=== PATIENT | female | born 1990 | race Caucasian/White ===

== ENCOUNTER 2022-03-19 14:13 | Inpatient (IN) ==
[2022-03-19] MEDS ORDERED: OXYTOCIN 30 UNITS/500 ML BAG IV PRN ×2 (14:45→14:48)
[2022-03-19] MEDS ORDERED: LIDOCAINE 1% LOCAL 20 ML VIAL INFIL PRN (14:45)
--- NOTE | 2022-03-19 14:58 | History & Physical Report ---
Date of Service March 19, 2022 Assessment & Plan (1) Encounter for induction of labor: Plan: Patient is a 31 yo at 37+3 WGA presenting to labor and delivery for induction d/t oligohydramnios and IUGR. Blood type: A+, GBS neg, rubella immune Plan to start oxytocin and insert almaraz bulb Rupture membranes later if necessary Proceed with labor and vaginal delivery Discussed with pt d/t IUGR and oligohydramnios, baby may not tolerate labor well. In the event that baby does not handle labor well, C section may be the safer option. Pt understands this. (2) IUGR (intrauterine growth restriction) affecting care of mother: (3) Oligohydramnios: Admission and Anticipated Discharge Date Admission Date: March 19, 2022 History of Present Illness Chief Complaint: induction of labor Primary Care Provider: NO PCP Patient is a 31 yo female currently at 37+3WGA with an ISIDRO 04/06/2022 as determined by US who is here for induction d/t IUGR and oligohydramnios. She had a visit this morning where her deepest fluid pocket was found to be <2 cm. Her was complicated by IUGR, oligohydramnios, obesity, and marginal cord insertion. Erratic, non timeable, non painful contractions; movement present; denies fluid loss; denies bloody show External uterine monitors used; category I tracing; normal FHT variability Had regular appointments with OB. Labs: (08/31/2021) Blood type: A+ Antibody screen: neg Hgb: 10.9 (today) Hct: 33.6% (today) WBC: 9.37 (today) Plt: 197 (today) Rubella: immune VDRL/RPR: neg Gonorrhea: neg Chlamydia: neg HIV: neg HbSAg: neg GBS: neg Other screens: cff-DNA: declined CF: declined SMA: declined Allergies Allergy/AdvReac Type Severity Reaction Status Date / Time No Known Allergies Allergy Verified 03/19/22 13:39 Home Medications Medication Instructions Recorded Confirmed Type albuterol sulfate 90 mcg/actuation 2 puff inhalation Q6H PRN 02/16/21 03/19/22 History aerosol inhaler Shortness Of Breath Or Wheezing cetirizine 10 mg tablet (Zyrtec) 10 mg PO DAILY PRN ALLERGIES 02/16/21 03/19/22 History prenat.vits,bernie,[id number]-uvos-zbtqv 1 tab PO DAILY 08/21/21 03/19/22 History ferrous sulfate 325 mg (65 mg 325 mg PO Q2D 02/03/22 03/19/22 History iron) capsule,extended release Patient History Medical History Allergy-induced asthma inhaler prn Anemia in Depression Missed ab Molar Surgical History H/O dilation and curettage History of right breast biopsy benign Hx of breast surgery right milk duct removal S/P wisdom tooth extraction Family History Father Stroke Hypertension Diabetes Mother Breast cancer Grandmother (Paternal) Diabetes Heart disease Grandfather (Maternal) Diabetes Other Cancer Denies family history of Ovarian cancer Lung cancer Social History Smoking Status: Former smoker Cigarettes Per Day: 2020; Second Hand Exposure: No; Hx Alcohol Use: No Hx Substance Use: Yes Preferred Language: Urdu Communication Ability: Effective Label Printer Required: No Beliefs That Will Affect Care: None marital status: marital status details: Billy (31) [phone] Current Living Situation: Spouse and Family Current Living Situation Comment: , 2 daughters current occupational status: employed current occupation: [employer] Feels Safe at Home: Yes Safety Concerns: Feels Safe At This Time Assistive Devices: None Review of Systems Denies fever, chills, sweats. Denies SOB, difficulty breathing, chest pain, palpitations, and chest pressure. Denies breast pain. Denies dysuria. Denies headache or changes in vision. Physical Exam Physical Exam: General: Alert and oriented. No acute distress CV: Regular rate and rhythm. No murmurs. Respiratory: CTA bilaterally. No rhonchi, wheezes, or crackles. No increased work of breathing. Abdomen: Gravid; Soft, nontender upon palpation Pelvic: Not performed. Pending COVID swab Lower extremities: No LE edema. No deep calf pain. Sabino's negative bilaterally. Supervising Physician Co-Signing Physician Notes Resident Physician Supervision Note: I interviewed and examined the patient. Discussed with Dr. Quintana and agree with findings and plan as documented in the note. Any exceptions or clarifications are listed here: 31 yo at 37 3/7 wga was seen in office for testing for fgr and found to have oligo. Given GA, was recommended for delivery per acog guidelines. PNI: FGR, oligohydramnios, marginal cord insertion. SVE 50/-2, fetus cat 1, toco irritability. Will begin induction with pit almaraz. 35cc almaraz placed after verbal consent obtained following discussion of RBA. Pt tolerated well. GBS neg Documented By: Luci Middleton MD Resident Activity Tracking Resident Involvement: Resident Care Provided Care Provided: OB Delivery
[2022-03-19 15:29] LABS: Hematocrit (blood only) 33.6 % (34.1-44.9); Hemoglobin 10.9 g/dl (12.0-16.0); Mean Corpuscular Hemoglobin 27.9 pg (25.0-34.0); Mean Corpuscular Hgb Conc 32.4 g/dL (32.0-36.0); Mean Corpuscular Volume 86.2 fL (80.0-100.0); Mean Platelet Volume 11.4 fL (9.4-12.3); Platelet Count 197 K/uL (130-400); RDW Coefficient of Variation 13.9 % (11.5-14.5); RDW Standard Deviation 43.5 fL (36.4-46.3); White Blood Count 9.37 K/ul (4.8-10.8)
[2022-03-19] MEDS: LACTATED RINGER'S 1,000 ML IV PRN ×2 (16:00→22:33)
[2022-03-19] MEDS ORDERED: NALOXONE HCL 1 MG in SODIUM CHLORIDE 0.9% 1000ML 1,000 ML IV PRN (22:18)
[2022-03-19] MEDS ORDERED: fentaNYL 2MCG/ML ROPIVACAINE 1.25MG/ML 100 ML BAG EPI PRN (22:18)
[2022-03-19] MEDS ORDERED: NALBUPHINE HCL INJ 10 MG/ML AMP IV PRN (22:18)
[2022-03-19] MEDS ORDERED: NALOXONE HCL 0.4 MG/1 ML VIAL/CARP IV PRN (22:18)
[2022-03-19] MEDS ORDERED: ONDANSETRON INJ 2 MG/ML 2 ML VIAL IV PRN (22:18)
[2022-03-19] MEDS ORDERED: ePHEDrine sulfate 50 MG/ML AMP IV PRN (22:18)
[2022-03-19] MEDS ORDERED: diphenhydrAMINE 50 MG/ML VIAL IV PRN (22:18)
[2022-03-19] MEDS ORDERED: fentaNYL citrate 100 MCG/2 ML VIAL ONE (22:20)
[2022-03-19] MEDS ORDERED: ePHEDrine sulfate 50 MG/ML AMP ONE (22:20)
--- NOTE | 2022-03-19 22:20 | Anesthesiology Consultation ---
Date of Service March 19, 2022 Assessment & Plan (1) Encounter for pre-operative examination: Chart Review Chart Review: Patient NOT seen in Pre Admission Testing and Acceptable Risk for Labor Epidural Consults Requested none History Height/Weight Height: 4 ft 11 in Weight: 82.117 kg Allergies Allergy/AdvReac Type Severity Reaction Status Date / Time No Known Allergies Allergy Verified 03/19/22 13:39 Medications Home Medications Medication Instructions Recorded Confirmed Last Taken albuterol sulfate 90 mcg/actuation 2 puff inhalation Q6H PRN 02/16/21 03/19/22 03/17/21 aerosol inhaler Shortness Of Breath Or Wheezing cetirizine 10 mg tablet (Zyrtec) 10 mg PO DAILY PRN ALLERGIES 02/16/21 03/19/22 2 Weeks Ago ~03/05/21 prenat.vits,bernie,ste-vube-nphwj 1 tab PO DAILY 08/21/21 03/19/22 03/19/22 0800 ferrous sulfate 325 mg (65 mg 325 mg PO Q2D 02/03/22 03/19/22 03/15/22 08:00 iron) capsule,extended release Active Medications Generic Name Dose Route Start Last Admin Trade Name Freq PRN Reason Stop Dose Admin Oxytocin 30 units in 500 mls @ 8 mls/hr 03/19/22 14:48 03/19/22 20:25 Pitocin IV 03/21/22 14:47 0.48 units/hr .Q24H PRN 8 mls/hr Labor Induction/Augmentation Titration Protocol 0.48 UNITS/HR Lactated Ringer's 1,000 mls @ 125 mls/hr 03/19/22 14:45 03/19/22 16:00 Lr IV 03/21/22 14:44 125 mls/hr .Q8H PRN Administration L&D Protocol Protocol Past Medical History Medical History Allergy-induced asthma inhaler prn Anemia in Depression Missed ab Molar Exercise / Class Metabolic Activity II 4-5 Yardwork/Stairs/Walk up hill Past Family History Family History Father Stroke Hypertension Diabetes Mother Breast cancer Grandmother (Paternal) Diabetes Heart disease Grandfather (Maternal) Diabetes Other Cancer Denies family history of Ovarian cancer Lung cancer Past Surgical History Surgical History H/O dilation and curettage History of right breast biopsy benign Hx of breast surgery right milk duct removal S/P wisdom tooth extraction Past Anesthesia History No Hx of Anesthesia Complications and No Family Hx of Anesthesia Complications History of PONV No Hx of PONV and No Hx of Motion Sickness Social History Smoking Status: Former smoker Smoking cigarettes per day: 2020 Hx Alcohol Use: No alcohol intake frequency: a few times a month Hx Substance Use: Yes substance use type: does not use Physical Exam Vital Signs Last Vital Signs Temp 36.9 C 03/19/22 19:15 Pulse 107 H 03/19/22 22:16 Resp 18 03/19/22 22:00 BP 126/82 03/19/22 22:16 Testing Laboratory Results 03/19/22 15:08
[2022-03-19] MEDS ORDERED: SODIUM CHLORIDE 0.9% INJ 10 ML VIAL ONE (22:21)
[2022-03-19] MEDS ORDERED: LIDOCAINE 2%/EPINEPHRINE 1:200,000 20 ML SDV ONE (22:21)
[2022-03-19] MEDS ORDERED: BUPIVACAINE 0.25% 30 ML VIAL ONE (22:21)
[2022-03-19] MEDS ORDERED: fentaNYL 2MCG/ML ROPIVACAINE 1.25MG/ML 100 ML BAG EPI ONE (22:21)
--- NOTE | 2022-03-19 23:49 | Labor Progress Brief Note ---
Date of Service March 19, 2022 Subjective Comfortable w/ epidural. There was ?rom when almaraz bulb came out earlier Assessment & Plan (1) Encounter for induction of labor: (2) Oligohydramnios: (3) IUGR (intrauterine growth restriction) affecting care of mother: Plan 31 yo at 37 3/7 wga admitted for IOL for FGR, oligo VSS Fetus cat 1 Labor - pit at 10, now s/p arom GBS neg epidural in place Admission and Anticipated Discharge Date Admission Date: March 19, 2022 Physical Exam Genitourinary: Manual OB Exam: + cervical dilation 4 cm, + cervical effacement 50%, + station -2 and + amniotic fluid (arom clear) OB Exam Monitor Tracing: + external FHT monitor used, + external uterine monitor used (q3) and + category I (145/mod/+accel/-decel) Results & Data ([facility]) Vital Signs (Past 12 Hours) Vital Signs Temp Pulse Resp BP Pulse Ox 03/19/22 19:15 98.4 F 18 03/19/22 23:44 100 03/19/22 23:44 95 H 03/19/22 23:39 98 03/19/22 23:39 113 H 03/19/22 23:38 103 H 03/19/22 23:38 101/60 03/19/22 23:34 99 03/19/22 23:34 95 H 03/19/22 23:29 99 03/19/22 23:29 108 H 03/19/22 23:24 95 03/19/22 23:24 109 H 03/19/22 23:23 97 H 03/19/22 23:23 104/61 03/19/22 23:19 99 03/19/22 23:19 88 03/19/22 22:42 18 03/19/22 22:42 18 03/19/22 22:44 18 03/19/22 22:44 18 03/19/22 22:46 18 03/19/22 22:46 18 03/19/22 22:48 18 03/19/22 22:48 18 03/19/22 22:50 18 03/19/22 22:50 18 03/19/22 23:00 18 03/19/22 23:00 18 03/19/22 22:55 18 03/19/22 22:55 18 03/19/22 23:14 97 03/19/22 23:14 95 H 03/19/22 23:09 99 03/19/22 23:09 106 H 03/19/22 23:06 112 H 03/19/22 23:06 102/57 L 03/19/22 23:04 100 03/19/22 23:04 129 H 03/19/22 23:02 139 H 03/19/22 23:02 98/55 L 03/19/22 22:59 99 03/19/22 22:59 131 H 03/19/22 22:56 104 H 03/19/22 22:56 105/59 L 03/19/22 22:54 99 03/19/22 22:54 128 H 03/19/22 22:54 103/56 L 03/19/22 22:52 157 H 03/19/22 22:52 98/58 L 03/19/22 22:50 123 H 03/19/22 22:50 96/55 L 03/19/22 22:49 100 03/19/22 22:49 118 H 03/19/22 22:48 101 H 03/19/22 22:48 98/54 L 03/19/22 22:46 112 H 03/19/22 22:46 94/52 L 03/19/22 22:44 114 H 03/19/22 22:44 88/51 L 03/19/22 22:42 122 H 03/19/22 22:42 98/53 L 03/19/22 22:38 126 H 03/19/22 22:38 115/63 03/19/22 22:36 113 H 03/19/22 22:36 124/75 03/19/22 22:34 116 H 03/19/22 22:34 120/75 03/19/22 22:16 107 H 03/19/22 22:16 126/82 03/19/22 22:00 18 03/19/22 22:00 18 03/19/22 20:23 114 H 03/19/22 20:23 123/63 03/19/22 19:15 8 L 03/19/22 19:15 98.4 F 8 L 03/19/22 19:10 109 H 03/19/22 19:10 122/71 03/19/22 16:26 98.2 F 20 03/19/22 14:59 122 H 126/89 Coding Level of Care Code None Diagnoses Encounter for induction of labor Z34.90 Oligohydramnios O41.00X0 IUGR (intrauterine growth restriction) affecting care of mother O36.5990
--- NOTE | 2022-03-20 02:05 | Delivery Summary ---
Vaginal Delivery Summary Date of Service March 20, 2022 Vaginal Delivery Summary [facility] PREOPERATIVE DIAGNOSIS: 1. Single intrauterine at 37 4/7 wga 2. Oligohydramnios 3. growth restriction 4. Marginal cord insertion POSTOPERATIVE DIAGNOSIS: 1. Single intrauterine at 37 4/7 wga 2. Oligohydramnios 3. growth restriction 4. Marginal cord insertion 5. Delivered PROCEDURE: 1. Normal spontaneous vaginal delivery. SURGEON: Luci Middleton MD ANESTHESIA: Epidural. ESTIMATED BLOOD LOSS: 200 mL FLUIDS: Continuous LR. URINE OUTPUT: None. COMPLICATIONS: None. CONDITION: Stable. INDICATIONS: 31 yo at 37 4/7 wga was seen one day ago for testing for growth restriction. She was found to be oligohydramnios and recommended for delivery given GA. Induction started with almaraz bulb and pitocin. Following almaraz bulb expulsion, pitocin was titrated up. There was ?SROM but ?forebag was palpated and AROM following obtaining epidural. She then progressed to complete and desired to push. FINDINGS: A viable female , weight pending with Apgars of 8 and 9 at 1 and 5 minutes respectively. SPECIMEN: Cord blood, placenta OPERATIVE REPORT: The patient progressed to 10 cm, 100% effaced and +2 station, pushed over intact perineum with anesthesia to deliver a viable female infant, weight and Apgars as above. Head of delivered in [place]ISE position. No nuchal cord was present. Body and shoulders were delivered without difficulty. was delivered to maternal abdomen and nursing staff. Delayed cord clamping was performed for 60 seconds. Cord was clamped and cut. Cord blood was obtained. Placenta delivered spontaneously intact with 3-vessel cord. IV oxytocin and fundal massage were given for excellent hemostasis. Vagina, cervix, perineum, and placenta were inspected. No lacerations were noted. Sponge and needle counts correct x2. No sponges were left behind. Mother and stable in immediate period. [facility] Vaginal Delivery Charge Vaginal Delivery Codes: 57872 global code for the antepartum, delivery, and post- Delivery Type Details: [facility]
[2022-03-20] MEDS ORDERED: ACETAMINOPHEN 325 MG TAB PO PRN (02:11)
[2022-03-20] MEDS ORDERED: BENZOCAINE 20% AER SPR 82.5 GM CAN EXT PRN (02:11)
[2022-03-20] MEDS ORDERED: HYDROCORTISONE ACETATE 25 MG SUPP PR PRN (02:11)
[2022-03-20] MEDS ORDERED: OXYTOCIN 30 UNITS/500 ML BAG IV PRN (02:11)
[2022-03-20] MEDS ORDERED: DIPHTHERIA/TETANUS/PERTUSSIS 0.5 ML SYR/VIAL IM ONE (02:11)
[2022-03-20] MEDS: IBUPROFEN 600 MG TAB PO PRN ×4 (04:22→23:46)
--- NOTE | 2022-03-20 05:14 | Anesthesia Procedure Note ---
Date of Service March 20, 2022 Anesthesia Post Epidural Note Vital Signs Vital Signs: Temp Pulse Resp BP Pulse Ox 36.7 C 127 H 18 100/62 88 L 03/20/22 02:00 03/20/22 03:23 03/20/22 04:00 03/20/22 03:23 03/20/22 01:51 Pain Intensity Lower Abdomen: Pain Intensity: 1 Notes Mental Status: alert / awake / arousable and participated in evaluation Nausea / Vomiting: adequately controlled Pain: adequately controlled Airway Patency, RR, SpO2: stable & adequate BP & HR: stable & adequate Hydration State: stable & adequate Neuraxial Anesthesia: was administered and sensory block is resolving Anesthetic Complications: no major complications apparent and Pt Satisfied with anesthetic care Epidural: Removed without complications and With tip intact
[2022-03-20] MEDS: PRENATAL VITAMIN 1 TAB PO SCH (08:11)
[2022-03-20] MEDS: FERROUS SULFATE 325 MG TAB PO SCH (08:11)
[2022-03-20] MEDS: DOCUSATE SODIUM 100 MG CAP PO SCH ×2 (08:11→20:12)
--- NOTE | 2022-03-21 06:30 | Obstetrical Progress Note ---
Date of Service <Arlin Baker DO Lilian - Last Filed: 03/21/22 07:07> March 21, 2022 Assessment & Plan <Arlin NewellDO sadi - Last Filed: 03/21/22 07:07> (1) care following vaginal delivery: Patient is PPD 1 s/p and doing well. - Eating well, voiding well, ambulating well - Vitals reviewed and within normal limits - Pain well controlled with analgesics - OOB, ambulation, diet progression as tolerated - Blood type: A+, GBS neg, rubella immune - Plan to discharge today - After discharge, 6 week follow up with Dr. Middleton <Radha Torres MD, FACOG - Last Filed: 03/21/22 07:53> (1) care following vaginal delivery: Subjective <Arlin NewellDO sadi - Last Filed: 03/21/22 07:07> Patient is a 31 yo female who is now PPD #1 following spontaneous vaginal delivery at 37+4 weeks. Reports feeling well this morning. She endorses abdominal cramping and 5/10 pain well managed on analgesics. Voiding without issue. Tolerating regular meals overnight and able to ambulate some. She has passed gas and had bowel movements. Persistent lochia with some improvement this morning. Patient feels her bleeding is "almost gone." Currently breast feeding. Review of Systems Denies fever, chills, sweats. Denies SOB, difficulty breathing, chest pain, palpitations, and chest pressure. Denies breast pain. Denies dysuria. Denies headache or changes in vision. Physical Exam <Arlin Baker DO Lilian - Last Filed: 03/21/22 07:07> General: Alert and oriented. No acute distress. CV: Regular rate and rhythm. No murmurs. Respiratory: CTA bilaterally. No rhonchi, wheezes, or crackles. No increased work of breathing. Abdomen: Positive bowel sounds. Soft, nontender, non distended. Uterus: Fundus firm and palpable 3 cm below the umbilicus. Lower extremities: No LE edema. No deep calf pain. Sabino's negative bilaterally. Results & Data ([facility]) <Arlin McduffieBarbara Quintana DO - Last Filed: 03/21/22 07:07> Vital Signs (Past 12 Hours) Vital Signs Temp Pulse Resp BP Pulse Ox O2 Del Method 03/20/22 23:25 36.6 C 75 18 113/76 03/20/22 20:10 36.7 C 98 H 18 114/75 97 Room Air <Radha Torres MD, FACOG - Last Filed: 03/21/22 07:53> Co-Signing Physician Notes Resident Physician Supervision Note: I was present with Dr. Quintana during the history and exam. I discussed the case with the resident and agree with the findings and plan as documented in the note. Any exceptions or clarifications are listed here: stable, ready for dc home, instructions reviewed. 6wk pp planned. breast/rhpos/ri. ff 2down nt, nt calves. Documented By: Radha Torres MD, FACOG Resident Activity Tracking <Arlin Quintana, DO - Last Filed: 03/21/22 07:07> Resident Involvement: Resident Care Provided Care Provided: OB Delivery
[2022-03-21] MEDS: PRENATAL VITAMIN 1 TAB PO SCH (08:01)
[2022-03-21] MEDS: DOCUSATE SODIUM 100 MG CAP PO SCH (08:01)
[2022-03-21] MEDS: FERROUS SULFATE 325 MG TAB PO SCH (08:01)
[2022-03-21] MEDS: IBUPROFEN 600 MG TAB PO PRN (13:08)
[2022-03-21] MEDS ORDERED: bisacodyL 5 MG TABEC PO SCH (20:00)
[2022-03-22] MEDS ORDERED: bisacodyL 10 MG SUPP PR PRN
== END 2022-03-21 13:55 | disposition home or self-care (01) | DRG 807 ==
LOC: 4S1 14:13 → 4E2 03-20 05:07

== ENCOUNTER 2023-07-17 07:37 | Inpatient (IN) ==
[2023-07-17] MEDS ORDERED: LACTATED RINGER'S 1,000 ML IV PRN (07:59)
[2023-07-17] MEDS ORDERED: LIDOCAINE 1% LOCAL 20 ML VIAL INFIL PRN (07:59)
[2023-07-17] MEDS ORDERED: OXYTOCIN 30 UNITS/NSS 30 UNITS/500 ML BAG IV PRN ×3 (07:59→14:08)
[2023-07-17 08:49] LABS: Hematocrit (blood only) 30.7 % (37.0-47.0); Hemoglobin 9.8 g/dl (12.0-16.0); Mean Corpuscular Hemoglobin 26.9 pg (25.0-34.0); Mean Corpuscular Hgb Conc 31.9 g/dL (32.0-36.0); Mean Corpuscular Volume 84.3 fL (80.0-100.0); Mean Platelet Volume 11.4 fL (9.4-12.4); Platelet Count 174 K/uL (130-400); RDW Standard Deviation 45.7 fL (36.4-46.3); Red Blood Count 3.64 M/uL (4.20-5.40); White Blood Count 9.87 K/ul (4.8-10.8)
--- NOTE | 2023-07-17 09:02 | History & Physical Report ---
Date of Service July 17, 2023 Assessment & Plan (1) 39 weeks gestation of : (2) Encounter for induction of labor: Plan admit, iv, labs. fhts categ 1. start pitocin. watch fluid ?mec, pt and partner aware. epidural if and when desires Admission and Anticipated Discharge Date Admission Date: July 17, 2023 History of Present Illness Chief Complaint: elective induction of labor Primary Care Provider: NO PCP 33yo at 39wks ega presents to L&D for planned elective induction of labor. Patient denies rom, ctx. Had some brown blood dc after membranes stripped yesterday. PNC c/b 1. obesity PNL rh pos, ri, gbs neg OBH: x 3 GYNH: nl paps, no stds Allergies Allergy/AdvReac Type Severity Reaction Status Date / Time No Known Allergies Allergy Verified 07/17/23 08:02 Home Medications Medication Instructions Recorded Confirmed Type albuterol sulfate 90 mcg/actuation 1 - 2 puff inhalation Q6H PRN 12/15/22 07/17/23 History aerosol inhaler Shortness Of Breath Or Wheezing ferrous sulfate [Iron (ferrous 325 mg PO Q OTHER DAY 06/12/23 07/17/23 History sulfate)] [id number] 1 tab PO DAILY 07/16/23 07/17/23 History [] Patient History Medical History (Updated 07/17/23 @ 09:01 by Radha Torres MD, FACOG) Molar Depression Anemia in Allergy-induced asthma inhaler prn Missed ab Encounter for anatomic survey Surgical History H/O dilation and curettage Hx of breast surgery right milk duct removal History of right breast biopsy benign S/P wisdom tooth extraction Family History Father Stroke Hypertension Diabetes Mother Breast cancer Grandmother (Paternal) Diabetes Heart disease Grandfather (Maternal) Diabetes Other Cancer Denies family history of Ovarian cancer Lung cancer Social History Smoking Status: Never smoker Second Hand Exposure: No; Do You Dip or Chew Tobacco: No; Hx Alcohol Use: No Hx Substance Use: No Preferred Language: Mexican Communication Ability: Effective Draughtsman Required: No Beliefs That Will Affect Care: None marital status: marital status details: Billy (31) [phone] Current Living Situation: Spouse Current Living Situation Comment: , 2 daughters current occupational status: employed current occupation: [employer] Feels Safe at Home: Yes Safety Concerns: Feels Safe At This Time Assistive Devices: None Review of Systems as per Subjective / HPI Physical Exam Constitutional: WD/WN, vitals as above Respiratory: normal respiratory effort, lungs clear to auscultation Cardiovascular: Rate/Rhythm: regular rate and regular rhythm Gastrointestinal (Abdomen): soft gravid nt efw 7-8# Musculoskeletal: no edema nontender calves Neurologic: grossly normal Psychiatric: A+Ox3, euthymic affect Genitourinary: Manual OB Exam: + cervical dilation (3.5), + cervical effacement (75%), + station -2 and + amniotic fluid (arom) clear and meconium (? thin) OB Exam Monitor Tracing: + external FHT monitor used, + external uterine monitor used (irreg), + category I and + normal FHT variability Results & Data Vital Signs (Past 12 Hours) Vital Signs Temp Pulse Resp BP 07/17/23 08:05 97.9 F 121 H 16 120/74 07/17/23 07:43 121 H 120/74 Coding Level of Care Code None Diagnoses 39 weeks gestation of Z3A.39 Encounter for induction of labor Z34.90
[2023-07-17] MEDS ORDERED: ePHEDrine sulfate 50 MG/ML AMP ONE (11:56)
[2023-07-17] MEDS ORDERED: fentaNYL citrate PF 100 MCG/2 ML VIAL ONE (11:56)
[2023-07-17] MEDS ORDERED: BUPIVACAINE 0.25% PF 30 ML VIAL ONE (11:57)
[2023-07-17] MEDS ORDERED: SODIUM CHLORIDE 0.9% PF INJ 10 ML VIAL ONE (11:57)
[2023-07-17] MEDS ORDERED: LIDOCAINE 2%/EPINEPHRINE 1:200,000 20 ML PF ONE (11:57)
--- NOTE | 2023-07-17 11:57 | Labor Progress Brief Note ---
Date of Service July 17, 2023 Subjective pt with pressure Assessment & Plan (1) 39 weeks gestation of : (2) Encounter for induction of labor: Plan good cx change, c/w pit. fhts categ 1. desires epidural. Admission and Anticipated Discharge Date Admission Date: July 17, 2023 Physical Exam Constitutional: WD/WN, vitals as above Genitourinary: Manual OB Exam: + cervical dilation 5 cm, + cervical effacement 80% and + station -2 OB Exam Monitor Tracing: + external FHT monitor used, + external uterine monitor used (q2 pit at 10), + category I and + normal FHT variability Results & Data Vital Signs (Past 12 Hours) Vital Signs Temp Pulse Resp BP 07/17/23 11:36 87 07/17/23 11:36 133/76 07/17/23 11:35 18 07/17/23 11:35 98.6 F 18 07/17/23 10:30 80 07/17/23 10:30 122/73 07/17/23 10:29 16 07/17/23 10:29 97.7 F 16 07/17/23 09:22 88 07/17/23 09:22 121/76 07/17/23 08:05 97.9 F 121 H 16 120/74 07/17/23 07:43 121 H 120/74 Coding Level of Care Code None Diagnoses 39 weeks gestation of Z3A.39 Encounter for induction of labor Z34.90
--- NOTE | 2023-07-17 12:13 | Anesthesiology Consultation ---
Date of Service July 17, 2023 Assessment & Plan (1) Encounter for pre-operative examination: Chart Review Chart Review: Acceptable Risk for Labor Epidural History Height/Weight Height: 4 ft 11 in Weight: 83.461 kg Allergies Allergy/AdvReac Type Severity Reaction Status Date / Time No Known Allergies Allergy Verified 07/17/23 08:02 Medications Home Medications Medication Instructions Recorded Confirmed Last Taken albuterol sulfate 90 mcg/actuation 1 - 2 puff inhalation Q6H PRN 12/15/22 07/17/23 Unknown aerosol inhaler Shortness Of Breath Or Wheezing ferrous sulfate [Iron (ferrous 325 mg PO Q OTHER DAY 06/12/23 07/17/23 07/15/23 08:00 sulfate)] [id number] 1 tab PO DAILY 07/16/23 07/17/23 07/09/23 08:00 [] Active Medications Generic Name Dose Route Start Last Admin Trade Name Freq PRN Reason Stop Dose Admin Oxytocin 30 units in 500 mls @ 10 mls/hr 07/17/23 07:59 07/17/23 11:30 Pitocin 30 Units/Nss IV 07/19/23 07:58 0.6 units/hr .Q24H PRN 10 mls/hr Labor Induction/Augmentation Titration Protocol 0.6 UNITS/HR Past Medical History Medical History (Updated 07/17/23 @ 12:13 by Torito Tovar MD) Molar Depression Anemia in Allergy-induced asthma inhaler prn Missed ab Past Family History Family History Father Stroke Hypertension Diabetes Mother Breast cancer Grandmother (Paternal) Diabetes Heart disease Grandfather (Maternal) Diabetes Other Cancer Denies family history of Ovarian cancer Lung cancer Past Surgical History Surgical History H/O dilation and curettage Hx of breast surgery right milk duct removal History of right breast biopsy benign S/P wisdom tooth extraction Social History Smoking Status: Never smoker Do You Dip or Chew Tobacco: No Hx Alcohol Use: No alcohol intake frequency: a few times a month Hx Substance Use: No substance use type: does not use Physical Exam Vital Signs Last Vital Signs Temp 37.0 C 07/17/23 11:35 Pulse 107 H 07/17/23 12:08 Resp 18 07/17/23 11:35 BP 133/76 07/17/23 11:36 Pulse Ox 98 07/17/23 12:08 Testing Laboratory Results 07/17/23 08:23 Blood Type A Positive 07/17/23 08:23 Antibody Screen NEGATIVE 07/17/23 08:23
[2023-07-17] MEDS ORDERED: fentaNYL citrate PF 100 MCG/2 ML VIAL EPI STA (12:39)
[2023-07-17] MEDS ORDERED: fentaNYL citrate PF 100 MCG/2 ML VIAL EPI PRN (12:39)
[2023-07-17] MEDS ORDERED: ONDANSETRON INJ 2 MG/ML 2 ML VIAL IV PRN (12:39)
[2023-07-17] MEDS ORDERED: SODIUM CHLORIDE 0.9% PF INJ 10 ML VIAL EPI STA (12:39)
[2023-07-17] MEDS ORDERED: BUPIVACAINE 0.25% PF 30 ML VIAL EPI STA (12:39)
[2023-07-17] MEDS ORDERED: fentANYL 2 MCG/ML BUPIVacaine 0.125%-NSS 100ML BAG EPI PRN (12:39)
[2023-07-17] MEDS ORDERED: LIDOCAINE 2%/EPINEPHRINE 1:200,000 20 ML PF EPI STA (12:39)
[2023-07-17] MEDS ORDERED: NALOXONE HCL 0.4 MG/1 ML VIAL/CARP IV PRN (12:39)
[2023-07-17] MEDS ORDERED: NALOXONE HCL 1 MG in SODIUM CHLORIDE 0.9% 1,000 ML IV PRN (12:39)
[2023-07-17] MEDS ORDERED: ROPIVACAINE 0.5% PF 5 MG/ML 20 ML VIAL EPI PRN (12:39)
[2023-07-17] MEDS ORDERED: BUPIVACAINE 0.25% PF 30 ML VIAL EPI PRN (12:39)
[2023-07-17] MEDS ORDERED: SODIUM CHLORIDE 0.9% PF INJ 10 ML VIAL EPI PRN (12:39)
[2023-07-17] MEDS ORDERED: LIDOCAINE 2% MPF LOCAL 5 ML VIAL EPI PRN (12:39)
[2023-07-17] MEDS ORDERED: ePHEDrine sulfate 50 MG/ML AMP IV PRN (12:39)
--- NOTE | 2023-07-17 13:21 | Labor Progress Brief Note ---
Date of Service July 17, 2023 Subjective pt comfortable. Assessment & Plan (1) 39 weeks gestation of : (2) Encounter for induction of labor: Plan begin 2nd stage. fhts categ 1. Admission and Anticipated Discharge Date Admission Date: July 17, 2023 Physical Exam Constitutional: WD/WN, vitals as above Genitourinary: Manual OB Exam: + cervical dilation 10 cm, + cervical effacement 100% and + station + 2 OB Exam Monitor Tracing: + external FHT monitor used, + external uterine monitor used (q2-3), + category I and + normal FHT variability Results & Data Vital Signs (Past 12 Hours) Vital Signs Temp Pulse Resp BP Pulse Ox 07/17/23 13:19 87 L 07/17/23 13:19 156 H 07/17/23 13:18 98 07/17/23 13:18 160 H 07/17/23 13:13 90 07/17/23 13:13 121 H 07/17/23 13:10 93 H 07/17/23 13:10 109/61 07/17/23 13:08 100 07/17/23 13:08 108 H 07/17/23 13:03 98 07/17/23 13:03 109 H 07/17/23 12:58 99 07/17/23 12:58 107 H 07/17/23 12:53 98 07/17/23 12:53 115 H 07/17/23 12:53 104/55 L 07/17/23 12:51 123 H 07/17/23 12:51 111/66 07/17/23 12:49 117 H 07/17/23 12:49 111/65 07/17/23 12:48 99 07/17/23 12:48 107 H 07/17/23 12:47 98 H 07/17/23 12:47 116/68 07/17/23 12:45 104 H 07/17/23 12:45 111/65 07/17/23 12:43 100 07/17/23 12:43 112 H 07/17/23 12:43 86/51 L 07/17/23 12:42 129 H 07/17/23 12:42 87/52 L 07/17/23 12:41 122 H 07/17/23 12:41 80/48 L 07/17/23 12:40 118 H 07/17/23 12:40 85/49 L 07/17/23 12:38 97 07/17/23 12:38 98 H 07/17/23 12:35 96 H 07/17/23 12:35 101/59 L 07/17/23 12:34 96 H 07/17/23 12:34 89/53 L 07/17/23 12:33 97 07/17/23 12:33 97 H 07/17/23 12:33 99 H 07/17/23 12:33 88/51 L 07/17/23 12:28 96 07/17/23 12:28 100 H 07/17/23 12:23 97 07/17/23 12:23 100 H 07/17/23 12:18 99 07/17/23 12:18 94 H 07/17/23 12:13 96 07/17/23 12:13 106 H 07/17/23 12:08 98 07/17/23 12:08 107 H 07/17/23 11:36 87 07/17/23 11:36 133/76 07/17/23 11:35 18 07/17/23 11:35 98.6 F 18 07/17/23 10:30 80 07/17/23 10:30 122/73 07/17/23 10:29 16 07/17/23 10:29 97.7 F 16 07/17/23 09:22 88 07/17/23 09:22 121/76 07/17/23 08:05 97.9 F 121 H 16 120/74 07/17/23 07:43 121 H 120/74 Coding Level of Care Code None Diagnoses 39 weeks gestation of Z3A.39 Encounter for induction of labor Z34.90
--- NOTE | 2023-07-17 13:43 | Delivery Summary ---
Vaginal Delivery Summary Date of Service July 17, 2023 Vaginal Delivery Summary The patient dilated to complete and pushed to deliver a viable female infant Apgars 8 and 9 via over intact perineum. Nuchal x 1 reduced at perineum. Shoulders and body delivered with ease. Mouth and nose bulb suctioned at perineum. Infant was vigorous and crying at . Cord clamped at 50 seconds of life and infant to maternal abdomen where the cord was then doubly clamped and cut. Placenta delivered spontaneously and intact, three-vessel cord. Hemostasis achieved with dilute pitocin and uterine massage and drainage of the bladder for approximately 100 cc under sterile conditions. Cervix and sulci intact. EBL 300 cc. Mother and baby stable in recovery. [facility] Vaginal Delivery Charge Delivery Type Details:
[2023-07-17] MEDS ORDERED: ACETAMINOPHEN 325 MG TAB PO PRN (14:08)
[2023-07-17] MEDS ORDERED: bisacodyL 10 MG SUPP PR PRN (14:08)
[2023-07-17] MEDS ORDERED: BENZOCAINE 20% SPRY 85 APPLN/85 GM CAN EXT PRN (14:08)
[2023-07-17] MEDS ORDERED: DIPHTHER/TETAN/PERTUS Vaccine (Tdap, Adol/Adult) 0.5mL IM ONE (14:08)
[2023-07-17] MEDS ORDERED: oxyCODONE/ACETAMINOPHEN 5mg/325mg TAB PO PRN (14:08)
[2023-07-17] MEDS ORDERED: HYDROCORTISONE ACETATE 25 MG SUPP PR PRN (14:08)
--- NOTE | 2023-07-17 15:11 | Anesthesia Procedure Note ---
Date of Service July 17, 2023 Anesthesia Post Epidural Note Vital Signs Vital Signs: Temp Pulse Resp BP Pulse Ox 37.0 C 84 18 121/77 98 07/17/23 11:35 07/17/23 14:55 07/17/23 11:35 07/17/23 14:55 07/17/23 14:08 Pain Intensity Lower Abdomen: Pain Intensity: 5 Notes Mental Status: alert / awake / arousable and participated in evaluation Nausea / Vomiting: adequately controlled Pain: adequately controlled Airway Patency, RR, SpO2: stable & adequate BP & HR: stable & adequate Hydration State: stable & adequate Neuraxial Anesthesia: was administered and sensory block is resolving Anesthetic Complications: no major complications apparent Epidural: Removed without complications and With tip intact
[2023-07-17] MEDS: IBUPROFEN 600 MG TAB PO PRN (21:28)
[2023-07-17] MEDS: DOCUSATE SODIUM 100 MG CAP PO SCH (21:28)
[2023-07-18] MEDS: IBUPROFEN 600 MG TAB PO PRN ×2 (01:48→07:49)
[2023-07-18 06:54] LABS: Hematocrit (blood only) 30.6 % (37.0-47.0); Hemoglobin 9.4 g/dl (12.0-16.0); Mean Corpuscular Hemoglobin 26.8 pg (25.0-34.0); Mean Corpuscular Hgb Conc 30.7 g/dL (32.0-36.0); Mean Corpuscular Volume 87.2 fL (80.0-100.0); Mean Platelet Volume 11.2 fL (9.4-12.4); Platelet Count 161 K/uL (130-400); RDW Coefficient of Variation 15.1 % (11.5-14.5); RDW Standard Deviation 47.5 fL (36.4-46.3); Red Blood Count 3.51 M/uL (4.20-5.40); White Blood Count 10.29 K/ul (4.8-10.8)
--- NOTE | 2023-07-18 07:11 | Obstetrical Progress Note ---
Date of Service <Megannan Jenkins DO - Last Filed: 07/18/23 07:16> July 18, 2023 Assessment & Plan <Megannan Jenkins DO - Last Filed: 07/18/23 07:16> (1) care following vaginal delivery: Plan Feels well today. Eating well, voiding well, ambulating well. Pain well controlled with prn ibuprofen. Routine care; OOB, ambulation, continue regular diet Anticipate discharge 24-48 hours after , likely today. After discharge will have 6 week follow-up with Dr. Torres. <Radha Torres MD, FACOG - Last Filed: 07/18/23 07:56> (1) care following vaginal delivery: Subjective <Megan Jenkins DO - Last Filed: 07/18/23 07:16> Pt is a 33 y/o female who is PPD#1 following at 39 weeks. Today, pt states she is feeling overall well. No questions or complaints at this time. She states she is having just minor cramping so far relieved with ibuprofen and her bleeding is improving. She has been ambulating, voiding, and tolerating oral intake. She is breast feeding and it has been going well. She would like to go home today. Constitutional: no fever, no chills or no sweats Respiratory: no dyspnea Cardiovascular: no chest pain or no palpitations Breast: no breast pain Genitourinary (female): no dysuria Neurologic: no headache(s) no changes in vision, Physical Exam <Megan Jenkins DO - Last Filed: 07/18/23 07:16> General: Alert, oriented. No acute distress. Cardiac: Regular rate and rhythm, no murmurs, rubs, or gallops. Respiratory: Clear to auscultation bilaterally, no wheezes/rales/rhonchi. No increased work of breathing. Symmetrical chest rise. No respiratory distress. Abdomen: Soft, nontender, nondistended. Bowel sounds present. Uterus: Uterine fundus firm, palpable below the umbilicus. Lower extremities: No lower extremity edema or swelling. No deep calf pain. Results & Data <Megan Jenkins DO - Last Filed: 07/18/23 07:16> Vital Signs (Past 12 Hours) Vital Signs Temp Pulse Resp BP Pulse Ox O2 Del Method 07/18/23 04:16 36.9 C 84 16 104/69 98 Room Air 07/17/23 23:03 36.9 C 87 16 103/65 97 Room Air 07/17/23 21:59 37.5 C 86 20 113/76 99 Room Air Supervising Physician <Radha Torres MD, FACOG - Last Filed: 07/18/23 07:56> Co-Signing Physician Notes Resident Physician Supervision Note: I was present with Dr. Jenkins during the history and exam. I discussed the case with the resident and agree with the findings and plan as documented in the note. Any exceptions or clarifications are listed here: stable routine care. abd soft ff 2 down nt, nt calves. ppd#1 s/p , , rh pos, ri. Documented By: Radha Torres MD, FACOG Resident Activity Tracking <Megan Jenkins, - Last Filed: 07/18/23 07:16> Resident Involvement: Resident Care Provided Care Provided: OB Delivery
[2023-07-18] MEDS: DOCUSATE SODIUM 100 MG CAP PO SCH (07:50)
[2023-07-18] MEDS ORDERED: PRENATAL VITAMIN 1 TAB PO SCH (08:00)
[2023-07-18] MEDS ORDERED: FERROUS SULFATE 325 MG TAB PO SCH (08:00)
[2023-07-18] MEDS ORDERED: bisacodyL 5 MG TABEC PO SCH (20:00)
== END 2023-07-18 15:30 | disposition home or self-care (01) | DRG 807 ==
LOC: 4S1 07:37 → 4E2 16:30
DX: J45.909 Unspecified asthma, uncomplicated; O99.02 Anemia complicating childbirth; E66.9 Obesity, unspecified; O99.52 Diseases of the respiratory system complicating childbirth; O69.81X0 Labor and delivery complicated by cord around neck, without compression, not applicable or unspecified; O99.214 Obesity complicating childbirth; D64.9 Anemia, unspecified; Z79.899 Other long term (current) drug therapy; Z3A.39 39 weeks gestation of pregnancy; Z37.0 Single live birth

== ENCOUNTER 2024-12-09 12:52 | Inpatient (IN) ==
[2024-12-09] MEDS ORDERED: ACETAMINOPHEN 325 MG TAB PO PRN ×2 (13:15→14:09)
[2024-12-09] MEDS ORDERED: LIDOCAINE 1% LOCAL 20 ML VIAL INFIL PRN (13:15)
[2024-12-09] MEDS ORDERED: CALCIUM CARBONATE 500 MG CHEWABLE TAB PO PRN (13:15)
[2024-12-09] MEDS: LACTATED RINGER'S 1,000 ML IV PRN (13:20)
[2024-12-09] MEDS: OXYTOCIN 30 UNITS/NSS 30 UNITS/500 ML BAG IV PRN ×2 (13:56→14:51)
[2024-12-09] MEDS: fentaNYL citrate PF 100 MCG/2 ML VIAL ONE ×2 (14:06→14:07)
[2024-12-09] MEDS: SODIUM CHLORIDE 0.9% PF INJ 10 ML VIAL ONE ×2 (14:06→14:08)
[2024-12-09] MEDS: ePHEDrine sulfate 50 MG/ML AMP ONE ×2 (14:06→14:07)
[2024-12-09] MEDS: LIDOCAINE 2%/EPINEPHRINE 1:200,000 20 ML PF ONE ×2 (14:07→14:08)
[2024-12-09] MEDS: fentANYL 2 MCG/ML BUPIVacaine 0.125%-NSS 100ML BAG ONE ×2 (14:07→14:08)
[2024-12-09] MEDS: BUPIVACAINE 0.25% PF 30 ML VIAL ONE ×2 (14:07)
[2024-12-09] MEDS ORDERED: bisacodyL 10 MG SUPP PR PRN (14:09)
[2024-12-09] MEDS ORDERED: HYDROCORTISONE ACETATE 25 MG SUPP PR PRN (14:09)
[2024-12-09] MEDS ORDERED: oxyCODONE/ACETAMINOPHEN 5mg/325mg TAB PO PRN (14:09)
--- NOTE | 2024-12-09 14:10 | Delivery Summary ---
Vaginal Delivery Summary Date of Service December 09, 2024 Vaginal Delivery Summary Patient is a 34-year-old 6 para 4-0-1-4 female EDC 12/15/2024 who presents at 39 and 1 sevenths weeks in active labor. She was 7 to 8 cm upon arrival in labor and delivery and then ruptured membranes for clear fluid. Shortly after this she had the urge to push. She pushed effectively over intact perineum for delivery of a viable female infant. After the head was delivered the rest the infant delivered easily and was placed on the mother's abdomen further attention and drying. The cord was short and was therefore clamped and cut shortly after to better position the baby on the mother's chest. After cord blood was obtained, the placenta was expressed intact with three-vessel cord. bleeding was controlled with dilute Pitocin and fundal massage. QBL was 200 cc. Mother and doing well after delivery [facility] Vaginal Delivery Charge Delivery Type Details: [facility]
[2024-12-09] MEDS ORDERED: SODIUM CHLORIDE 0.9% 100 ML IV PRN (14:19)
[2024-12-09] MEDS: DIPHTHER/TETAN/PERTUS Vaccine (Tdap, Adol/Adult) 0.5mL IM ONE (14:46)
[2024-12-09] MEDS: BENZOCAINE 20% SPRY 85 APPLN/85 GM CAN EXT PRN (14:50)
[2024-12-09 15:01] LABS: Hematocrit (blood only) 33.3 % (37.0-47.0); Hemoglobin 10.8 g/dl (12.0-16.0); Mean Corpuscular Hemoglobin 28.2 pg (25.0-34.0); Mean Corpuscular Hgb Conc 32.4 g/dL (32.0-36.0); Mean Corpuscular Volume 86.9 fL (80.0-100.0); Mean Platelet Volume 12.5 fL (9.4-12.4); Platelet Count 156 K/uL (130-400); RDW Coefficient of Variation 14.4 % (11.5-14.5); RDW Standard Deviation 45.4 fL (36.4-46.3); Red Blood Count 3.83 M/uL (4.20-5.40); White Blood Count 11.43 K/ul (4.8-10.8)
[2024-12-09 16:57] VITALS: RESP 18
[2024-12-09] MEDS: IBUPROFEN 600 MG TAB PO PRN (21:00)
[2024-12-09] MEDS: DOCUSATE SODIUM 100 MG CAP PO SCH (21:00)
--- NOTE | 2024-12-10 05:38 | Obstetrical Progress Note ---
Date of Service December 10, 2024 Assessment & Plan (1) Encounter for care and examination after delivery: (2) Gestational diabetes: Plan Pt is 34 yo post- day 1 s/p at 39w7d. complicated by diet controlled GDM. Pt is recovering well and ready to discharge - Encourage ambulation - Encourage breast feeding - Pain control with tylenol, ibuprofen - Anticipate DC today Admission and Anticipated Discharge Date Admission Date: December 09, 2024 Supervising Physician Co-Signing Physician Notes Resident Physician Supervision Note: I interviewed and examined the patient. Discussed with Dr. Gr and agree with findings and plan as documented in the note. Any exceptions or clarifications are listed here: [None] Documented By: Baylee Walden MD, FACOG Subjective Pt is 34 yo post- day 1 s/p at 39w7d Ambulation:In room Voiding:voiding normally Passing gas: yes BM: no Diet tolerance:regular diet Lochia:bloody, no clots Feeding type: breast Current pain level: 1-3 /10 improved with ibuprofen Resting comfortably this morning in NAD. Denies DAMIAN, CP, SOB, N/V/D, LE pain/swelling. Review of Systems Review of Systems: As per HPI Physical Exam Constitutional: WD/WN, vitals as above Respiratory: normal respiratory effort, lungs clear to auscultation Cardiovascular: RRR, no murmur, no edema Gastrointestinal (Abdomen): normal bowel sounds, soft, nontender, no hepatosplenomegaly Uterine fundus firm and at 2 cm below level of umbilicus Neurologic: PERRL, EOMI, accommodation nl, no face palsy, no dysarthria Moving all 4 extremities on command Psychiatric: A+Ox3, euthymic affect Results & Data Vital Signs (Past 12 Hours) Vital Signs Temp Pulse Resp BP 12/10/24 01:00 36.8 C 83 18 109/61 12/09/24 20:55 37.1 C 100 H 18 128/80 Resident Activity Tracking Resident Involvement: Resident Care Provided Care Provided: Adult Hospital Medicine
[2024-12-10 06:48] LABS: Hematocrit (blood only) 30.5 % (37.0-47.0); Hemoglobin 9.6 g/dl (12.0-16.0); Mean Corpuscular Hemoglobin 27.8 pg (25.0-34.0); Mean Corpuscular Hgb Conc 31.5 g/dL (32.0-36.0); Mean Corpuscular Volume 88.4 fL (80.0-100.0); Mean Platelet Volume 11.4 fL (9.4-12.4); Platelet Count 142 K/uL (130-400); RDW Coefficient of Variation 14.4 % (11.5-14.5); RDW Standard Deviation 45.8 fL (36.4-46.3); Red Blood Count 3.45 M/uL (4.20-5.40); White Blood Count 8.52 K/ul (4.8-10.8)
[2024-12-10] MEDS: PRENATAL VITAMIN 1 TAB PO SCH (07:31)
[2024-12-10 07:43] VITALS: O2SAT 100
[2024-12-10 11:24] VITALS: BP 131/84; PULSE 82; TEMP 97.7
[2024-12-10] MEDS ORDERED: bisacodyL 5 MG TABEC PO SCH (20:00)
== END 2024-12-10 15:00 | disposition home or self-care (01) | DRG 807 ==
LOC: OPB 12:52 → 4S1 12:55 → 4E2 16:34